=== PATIENT | male | born 1945 | race Caucasian/White ===

== ENCOUNTER → 2016-10-25 | Outpatient (CLI) | payer OTHER ==
--- NOTE | 2016-10-25 08:53 | DI ---
AP PELVIS and LEFT HIP, 10/25/2016 7:48 AM: Clinical History: Left hip pain. Previous Exam: None at this facility. There is no soft tissue abnormality. The bony structures of the pelvis are normal. 2 views of the lef t hip are normal. Readin. Normal left hip exam. 2. The AP pelvis view is unremarkable.
== END ==
LOC: MOB RAD 08:00
PROVIDERS: ATTEND Physician Assistant Medical
DX: M25.552 Pain in left hip (principal); B02.9 Zoster without complications; W00.0XXA Fall on same level due to ice and snow, initial encounter
CPT/HCPCS: 73502; 99213; G0463

== ENCOUNTER → 2016-11-16 | Outpatient (CLI) | payer OTHER | LOC: MMPC 11:11 | PROVIDERS: ATTEND Internal Medicine | DX: Z91.09 Other allergy status, other than to drugs and biological substances (principal) | CPT/HCPCS: G0463; J3301 ==

== ENCOUNTER → 2016-11-22 | Outpatient (CLI) | payer OTHER | LOC: MMPC 09:00 | PROVIDERS: ATTEND Physician Assistant Medical | DX: J30.2 Other seasonal allergic rhinitis (principal); R42 Dizziness and giddiness | CPT/HCPCS: 99213; G0463 ==

== ENCOUNTER → 2016-12-01 | Outpatient (CLI) | payer OTHER ==
[2016-12-01 10:06] LABS: HEMATOCRIT 44.8 % (42.0-52.0); HEMOGLOBIN 15.2 g/dL (14.0-18.0); MEAN CORPUSCULAR HEMOGLOBIN 30.8 PG (27-31); MEAN CORPUSCULAR HGB CONC 33.9 g/dL (33-37); MEAN PLATELET VOLUME 10.4 FL (7.4-12.2); RDW COEFFICIENT OF VARIATION 15.9 % (11.5-14.5); RED BLOOD COUNT 4.93 10^6/uL (4.70-6.10); WHITE BLOOD COUNT 9.65 10^3/uL (4.8-10.8)
[2016-12-01 10:12] LABS: BILIRUBIN,TOTAL 0.6 mg/dL (0.3-1.2); BUN/CREATININE RATIO 23.33 (6-20); CALCIUM 9.2 mg/dL (8.7-10.7); CREATININE 0.9 mg/dL (0.70-1.50); POTASSIUM 4.4 meq/L (3.8-5.2)
[2016-12-01 11:02] LABS: PLATELET MORPHOLOGY COMMENT NORMAL MORPHOLOGY (NORM)
[2016-12-01 11:03] LABS: BAND NEUTROPHILS % 0 % (0-10); BASOPHILS % (MANUAL) 0 % (0-1); EOSINOPHILS % (MANUAL) 2 % (0-8); ERYTHROCYTE SEDIMENTATION RATE 2 MM/HR (0-15); LYMPHOCYTES % (MANUAL) 30 % (10-50); MONOCYTES % (MANUAL) 7 % (0-12); NEUTROPHILS % (MANUAL) 61 % (50-80)
[2016-12-02 12:40] LABS: HEMOGLOBIN A1C 7.05 % (4.2-6.0); MEAN BLOOD GLUCOSE (CALC) 148.765 mg/dL
== END ==
LOC: LAB 09:29
PROVIDERS: ATTEND Internal Medicine
DX: I10 Essential (primary) hypertension (principal); R63.4 Abnormal weight loss; R73.09 Other abnormal glucose; E78.5 Hyperlipidemia, unspecified; Z12.5 Encounter for screening for malignant neoplasm of prostate
CPT/HCPCS: 36415; 80053; 83036; 84443; 85007; 85652; 86140; G0103

== ENCOUNTER → 2016-12-30 | Outpatient (CLI) | payer OTHER ==
[2016-12-30 14:16] LABS: HEMATOCRIT 46.8 % (42.0-52.0); MEAN CORPUSCULAR HEMOGLOBIN 31.3 PG (27-31); MEAN CORPUSCULAR HGB CONC 34.2 g/dL (33-37); MEAN CORPUSCULAR VOLUME 91.6 FL (80-90); MEAN PLATELET VOLUME 10.2 FL (7.4-12.2); RED BLOOD COUNT 5.11 10^6/uL (4.70-6.10)
== END ==
LOC: LAB 14:01
PROVIDERS: ATTEND Internal Medicine Gastroenterology
DX: K50.90 Crohn's disease, unspecified, without complications (principal)
CPT/HCPCS: 36415; 85027

== ENCOUNTER → 2017-04-08 | Outpatient (CLI) | payer OTHER ==
[2017-04-08 09:02] LABS: HEMATOCRIT 47.2 % (42.0-52.0); MEAN CORPUSCULAR HEMOGLOBIN 31.1 PG (27-31); MEAN CORPUSCULAR HGB CONC 33.9 g/dL (33-37); MEAN CORPUSCULAR VOLUME 91.7 FL (80-90); MEAN PLATELET VOLUME 10.8 FL (7.4-12.2); RED BLOOD COUNT 5.15 10^6/uL (4.70-6.10)
== END ==
LOC: LAB 08:46
PROVIDERS: ATTEND Internal Medicine Gastroenterology
DX: K50.90 Crohn's disease, unspecified, without complications (principal)
CPT/HCPCS: 36415; 85027

== ENCOUNTER → 2017-04-20 | Outpatient (CLI) | payer OTHER | LOC: MMPC 11:11 | PROVIDERS: ATTEND Internal Medicine | DX: I10 Essential (primary) hypertension (principal); R73.9 Hyperglycemia, unspecified; K50.90 Crohn's disease, unspecified, without complications; E78.5 Hyperlipidemia, unspecified | CPT/HCPCS: 83037; 99214; G0463 ==